=== PATIENT | female | born 1985 | race African-American/Black ===

== ENCOUNTER 2021-01-27 18:38 | Emergency (ER) | payer SELFPAY ==
[~2021-01-27] VITALS: Ht 160 cm; Wt 64.0 kg
[2021-01-27 18:40] VITALS: BP 140/82
== END 2021-01-27 19:04 | disposition left against medical advice (07) ==
LOC: ER 18:38
DX: R53.1 Weakness (principal); Z53.21 Procedure and treatment not carried out due to patient leaving prior to being seen by health care provider